=== PATIENT | female | born 1940 | race Caucasian/White ===

== ENCOUNTER → 2016-05-16 | Outpatient (CLI) | payer MEDICARE, OTHER | END | disposition home or self-care (01) | LOC: GMAJ 17:06 | PROVIDERS: ATTEND Family Medicine | DX: R31.29 Other microscopic hematuria (principal) ==

== ENCOUNTER → 2016-05-23 | Outpatient (CLI) | payer MEDICARE, OTHER ==
--- NOTE | 2016-05-23 08:48 | CT ---
EXAM DESCRIPTION: Abdoment/Pelvis w/o Contrast CLINICAL HISTORY: HEMATURIA COMPARISON: None. TECHNIQUE: CT of the abdomen and pelvis was performed without contrast. Multiple axial images and multiplanar reconstructions were generated. FINDINGS: Tree-in-bud opacities noted within the right middle lobe and base of right lower lobe. The liver, gallbladder, spleen, bilateral adrenal glands and pancreas are unremarkable. Multiple peripelvic cysts noted within bilateral kidneys. No right ureteral stone. No definitive left renal stone. Urinary bladder is grossly unremarkable. Uterus and bilateral ovaries are grossly unremarkable. Diverticulosis of the colon noted. Small bowel is unremarkable. Small hiatal hernia noted. Atherosclerotic disease of the abdominal aorta with minimal ectasia. IMPRESSION: 1. Tree-in-bud opacities noted within the right lung base which can be seen in setting of aspiration or pneumonia. Aspiration is suspected modified barium swallow is suggested. 2. Diverticulosis of the colon. 3. No evidence of renal stone on today's study. Electronically signed by: Mayur Govea MD 05/23/2016 8:48 AM [facility]
== END | disposition home or self-care (01) ==
LOC: CT 07:52
PROVIDERS: ATTEND Family Medicine
DX: R31.9 Hematuria, unspecified (principal)

== ENCOUNTER → 2016-10-26 | Outpatient (CLI) | payer MEDICARE, OTHER ==
--- NOTE | 2016-10-28 19:39 | MRI ---
EXAM DESCRIPTION: Lumbar Spine w/o Contrast CLINICAL HISTORY: SPINAL STENOSIS COMPARISON: 06/27/2012 TECHNIQUE: Multiplanar images of the lumbar spine were submitted without the administration of contrast FINDINGS: There is mild anterolisthesis of L4 on L5 which was present on the previous examination. Mild retrolisthesis of L1 on L2 which also appears to been present on the prior study. Mild heterogeneity of the marrow which appears to be related to the patient's age and fibrofatty infiltration. No geographic marrow lesion or evidence of marrow edema. Conus ends at the level of L1. No abnormal signal in the distal cord or conus. There appear to be cortical renal cysts and parapelvic cysts bilaterally which were present on the previous examination. The possibility of hydronephrosis is not excluded. T12-L1: Unremarkable. L1-L2: There is generalized bulging of the disc and osteophytosis with facet arthropathy. Changes are greatest on the right with moderate left and moderate to severe right neural foraminal stenosis and mild central canal stenosis. Appears unchanged from the previous exam. L2-L3: Mild bulging of the disc and facet arthropathy with some flattening of the anterior aspect of the thecal sac and mild bilateral neural foraminal narrowing left greater than right. This appears similar to the prior study. L3-L4: Generalized bulging of the disc greatest on the left with moderate facet arthropathy and ligament of flavum hypertrophy. There is mild narrowing of the central canal with severe bilateral neural foraminal stenosis left greater than right. This appears to have progressed as compared to the previous examination L4-L5: Moderate bulging of the disc with severe facet arthropathy and ligamentum flavum hypertrophy. There is moderate narrowing of the canal measuring 8 mm with severe bilateral neural foraminal stenosis. Appears similar to the prior examination. L5-S1: High signal posteriorly in the disc interspace suggests annular tear. There is generalized bulging of the disc and facet arthropathy. Disc bulging is greatest on the left. There is mild central canal stenosis with severe bilateral neural foraminal stenosis particularly on the left. The right-sided stenosis appears worse than on the previous examination as does the central canal stenosis. IMPRESSION: Mild central canal stenosis and severe neural foraminal stenosis at L5-S1. The right-sided stenosis appears worse than on the prior study Severe neural foraminal and moderate central canal stenosis at L4-5 which appears stable Progression of degenerative changes at L3-L4 with mild central canal and severe bilateral neural foraminal stenosis Additional spondylitic changes appear stable Renal cysts versus hydronephrosis also appearing unchanged Electronically signed by: Elza Yee 10/28/2016 7:38 PM CDT
== END | disposition home or self-care (01) ==
LOC: MRI 13:29
PROVIDERS: ATTEND Family Medicine
DX: M48.06 Spinal stenosis, lumbar region (principal)

== ENCOUNTER → 2017-01-11 | Outpatient (CLI) | payer MEDICARE, OTHER | END | disposition home or self-care (01) | LOC: GMAJ 11:10 | PROVIDERS: ATTEND Family Medicine | DX: I10 Essential (primary) hypertension (principal) ==

== ENCOUNTER 2017-06-20 14:55 | Emergency (ER) | payer MEDICARE, OTHER ==
[2017-06-20] MEDS ORDERED: IPRATROPIUM/ALBUTEROL 3 ML VIAL NEB ONE ×2 (15:39)
--- NOTE | 2017-06-20 16:17 | ED.PDOC ---
History of Present Illness - General Chief Complaint: Respiratory Problem Stated Complaint: Feels like she can't catch her breath Time Seen by Provider: 06/20/17 15:39 Source: patient Exam Limitations: no limitations - History of Present Illness Initial Comments: Patient comes in with 2-3 day history of shortness of breath with activity. She states she has to rest after minimal work and that is not normal for her. She feels like it is swelling on her neck and upper airway and "not in my lungs ". She has never had this before. She denies cough, congestion, fever, wheezing. She has had inhaler for allergies in the distant past but not currently. She denies chest pain and has no past history of cardiac disease or anemia. She has no overt weakness and denies any swelling. Timing/Duration: days - 2-3 Activities at Onset: activity Possible Cause: no prior episodes Improving Factors: rest Worsening Factors: movement Associated Symptoms: denies symptoms Respiratory Risk Factors: no cause identified Allergies/Adverse Reactions: Allergies Penicillins Allergy (Verified 06/20/17 15:15) Anaphylaxis Home Medications: Ambulatory Orders Ferrous Sulfate 325 mg PO DAILY 30 Days #30 tab 06/20/17 Review of Systems - Review of Systems Constitutional: States: no symptoms reported. Denies: chills, diaphoresis, fever EENTM: States: no symptoms reported Respiratory: States: short of breath. Denies: cough, wheezing Cardiology: States: no symptoms reported. Denies: chest pain, edema, palpitations, syncope Gastrointestinal/Abdominal: States: no symptoms reported. Denies: diarrhea, nausea, vomiting Genitourinary: States: no symptoms reported Musculoskeletal: States: no symptoms reported Skin: States: no symptoms reported Neurological: States: no symptoms reported. Denies: headache, tingling, tremors Past Medical History (General) - Patient Medical History Hx Stroke: No Hx Congestive Heart Failure: No Hx Hypertension: Yes Hx Diabetes: Yes Hx Gastroesophageal Reflux: Yes Hx MRSA: No Surgical History: other - Vaccination History Hx Influenza Vaccination: Yes - 2017 Hx Pneumococcal Vaccination: Yes - Social History Hx Tobacco Use: Yes - Pt smoked as a teenager for a couple of years Family Medical History - Family History Mother Living Status: Hx Family Hypertension: Yes Hx Family Diabetes: Yes Physical Exam - Physical Exam General Appearance: Comfortable, No apparent distress Eyes, Ears, Nose, Throat Exam: PERRL/EOMI, normal ENT inspection, TMs normal, pharynx normal, scleral icterus (L) Neck: non-tender, full range of motion, supple Respiratory: chest non-tender, lungs clear, normal breath sounds, no respiratory distress, no accessory muscle use Cardiovascular/Chest: normal peripheral pulses, regular rate, rhythm, no edema, no gallop, no JVD, no murmur Peripheral Pulses: radial,right: 2+, posterior tibialis,right: 2+, posterior tibialis,left: 2+ Gastrointestinal/Abdominal: normal bowel sounds, non tender, soft, no organomegaly, no pulsatile mass 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 Copy, Patient Portal Self Enrollment Diet: other - increase iron rich foods Referrals: Earnest Cheng MD [Primary Care Provider] - 1-2 Weeks Prescriptions: Ferrous Sulfate 325 mg PO DAILY 30 Days #30 tab Home Medications: Ambulatory Orders Ferrous Sulfate 325 mg PO DAILY 30 Days #30 tab 06/20/17 Comments: Patient has normal lung/chest exam. She is however anemic. Explained that with iron def anemia needs work up to make sure no chronic loss. Patient will get iron supplement 325 mg po qd. She is to follow up with PCP in 3-4 days. Return to ER for worsening shortness of breath, chest pain, weakness.
--- NOTE | 2017-06-20 16:20 | RAD ---
EXAM DESCRIPTION: Chest,2 Views CLINICAL HISTORY: shortness of breath COMPARISON: None TECHNIQUE: PA/lateral FINDINGS: Patchy density in the lingula is noted suggesting minimal scarring or discoid atelectasis. This is seen overlying the heart on the lateral view. Right lung is clear. Left upper lung zone is clear. Otherwise there is no acute appearing cardiac or pulmonary abnormality. Heart size is normal with normal pulmonary vascularity. No pleural effusion or pneumothorax. Lateral view shows intact sternum and T-spine. Degenerative changes are seen in the mid T-spine and upper L-spine and the bones appear osteopenic or osteoporotic. Calcified aorta is noted. IMPRESSION: Linear density probably scarring or discoid atelectasis. Otherwise clear chest. Electronically signed by: Rex Wright MD 06/20/2017 4:18 PM CDT
[2017-06-20 17:54] VITALS: BP 148/79; TEMP 97; O2SAT 97
== END 2017-06-20 17:22 | disposition home or self-care (01) ==
LOC: ER 14:55
DX: D50.9 Iron deficiency anemia, unspecified (principal); I10 Essential (primary) hypertension; E11.9 Type 2 diabetes mellitus without complications; K21.9 Gastro-esophageal reflux disease without esophagitis; Z87.891 Personal history of nicotine dependence; Z88.0 Allergy status to penicillin

== ENCOUNTER → 2017-06-22 | Outpatient (CLI) | payer MEDICARE, OTHER | END | disposition home or self-care (01) | LOC: GMAJS 13:24 | PROVIDERS: ATTEND Physician Assistant | DX: D64.9 Anemia, unspecified (principal); R31.29 Other microscopic hematuria ==

== ENCOUNTER 2017-07-01 15:51 | Emergency (ER) | payer MEDICARE, OTHER ==
[2017-07-01 16:03] VITALS: TEMP 98.8
[2017-07-01] MEDS ORDERED: ALPRAZolam 0.25 MG TAB PO ONE (16:05)
[2017-07-01] MEDS ORDERED: ASPIRIN TABLET 325 MG TAB PO ONE (16:07)
[2017-07-01] MEDS ORDERED: METOPROLOL TARTRATE 25 MG TAB PO ONE (16:07)
[2017-07-01] MEDS ORDERED: ATORVASTATIN 20 MG TAB PO ONE (16:07)
[2017-07-01] MEDS ORDERED: NITROGLYCERIN 0.4 MG 25 EA TAB SL ONE (16:07)
--- NOTE | 2017-07-01 16:40 | RAD ---
EXAM DESCRIPTION: Chest,1 View CLINICAL HISTORY: chest pain COMPARISON: 06/20/2017 FINDINGS: Cardiac silhouette is within normal limits. Small focus of consolidation is again seen in the left lung base. Atelectasis involves the right lung base with a small region of consolidation worsening at the medial right lung base.. IMPRESSION: Bilateral consolidations. Electronically signed by: Johnathan Gauthier 07/01/2017 4:39 PM CDT
--- NOTE | 2017-07-01 18:01 | ED.PDOC ---
History of Present Illness - General Chief Complaint: Chest Pain/[place] Stated Complaint: Chest burning, shortness of breath Time Seen by Provider: 07/01/17 16:05 Source: patient Exam Limitations: no limitations - History of Present Illness Initial Comments: Patient comes in with onset today of chest discomfort that feels like "tingling " with radiation to her arms. She has had several episodes of this and her doctor recently, 3 days ago, put her on Xffexor. Patient states in the past she was on Celexa for years and did well but then she became concerned that it was causing some diarrhea and she stopped the medication on May. About 1-2 weeks later she started having these episodes. Today she has no shortness of breath, nausea, diaphoresis. She has no known heart disease and has never been a smoker. The discomfort "is not pain" but a really horrible feeling with anxiety. Timing/Duration: 4-6 hours Severity/Quality: mild Location: substernal Chest Pain Radiation: arms Activities at Onset: emotional stress Prior Chest Pain/Cardiac Workup: no prior chest pain Improving Factors: nothing Worsening Factors: other - Xanax given in the ER Nitro Today/Relief: provided by ED Aspirin Treatment Today: provided by ED Associated Symptoms: denies symptoms Allergies/Adverse Reactions: Allergies Penicillins Allergy (Verified 06/20/17 15:15) Anaphylaxis Home Medications: Ambulatory Orders Ferrous Sulfate 325 mg PO DAILY 30 Days #30 tab 06/20/17 Review of Systems - Review of Systems Constitutional: States: no symptoms reported. Denies: chills, fever EENTM: States: no symptoms reported Respiratory: States: no symptoms reported. Denies: cough, orthopnea, short of breath, wheezing Cardiology: States: chest pain. Denies: edema, palpitations, syncope Gastrointestinal/Abdominal: States: no symptoms reported. Denies: abdominal pain, diarrhea, nausea, vomiting Genitourinary: States: no symptoms reported Musculoskeletal: States: no symptoms reported Skin: States: no symptoms reported Past Medical History (General) - Patient Medical History Hx Stroke: No Hx Congestive Heart Failure: No Hx Hypertension: Yes Hx Diabetes: Yes Hx Gastroesophageal Reflux: Yes Hx MRSA: No - Vaccination History Hx Influenza Vaccination: Yes - 2017 Hx Pneumococcal Vaccination: Yes - Social History Hx Tobacco Use: Yes - Pt smoked as a teenager for a couple of years Family Medical History - Family History Mother Living Status: Hx Family Hypertension: Yes Hx Family Diabetes: Yes Physical Exam - Physical Exam General Appearance: Alert, Anxious Eyes, Ears, Nose, Throat Exam: PERRL/EOMI, normal ENT inspection, TMs normal, pharynx normal Neck: non-tender, full range of motion, supple, normal inspection Respiratory: chest non-tender, lungs clear, normal breath sounds, no respiratory distress Cardiovascular/Chest: normal peripheral pulses, regular rate, rhythm, no edema, no gallop, no JVD, no murmur Peripheral Pulses: radial,right: 2+ Gastrointestinal/Abdominal: normal bowel sounds, non tender, soft, no organomegaly, no pulsatile mass Neurologic: senior editor II-XII nml as tested, alert, oriented x 3 Progress - Progress Progress: 07/01/17 18:02 07/01/17 16:15 EKG STAT Laboratory Results WBC 5.0 K/mm3 (4.8-10.8) 07/01/17 16:20 RBC 4.07 M/mm3 (4.20-5.40) L 07/01/17 16:20 Hgb 10.4 gm/dL (12.0-16.0) L 07/01/17 16:20 Hct 32.2 % (36.0-47.0) L 07/01/17 16:20 MCV 79.1 fl (81.0-99.0) L 07/01/17 16:20 MCH 25.5 pg (27.0-31.0) L 07/01/17 16:20 MCHC 32.3 g/dL (33.0-37.0) L 07/01/17 16:20 RDW 16.3 % (11.5-14.5) H 07/01/17 16:20 Plt Count 296 K/mm3 (130-400) 07/01/17 16:20 MPV 7.7 fl (7.40-10.4) 07/01/17 16:20 Absolute Neuts (auto) 3.50 K/uL (1.8-6.8) 07/01/17 16:20 Absolute Lymphs (auto) 0.90 K/uL (1.0-3.4) L 07/01/17 16:20 Absolute Monos (auto) 0.40 K/uL (0.2-0.8) 07/01/17 16:20 Absolute Eos (auto) 0.20 K/uL (0.0-0.4) 07/01/17 16:20 Absolute Basos (auto) 0.00 K/uL (0.0-0.1) 07/01/17 16:20 Neutrophils % 68.7 % (42.0-78.0) 07/01/17 16:20 Lymphocytes % 18.7 % (20.0-50.0) L 07/01/17 16:20 Monocytes % 8.1 % (2.0-9.0) 07/01/17 16:20 Eosinophils % 3.8 % (1.0-5.0) 07/01/17 16:20 Basophils % 0.7 % (0.0-2.0) 07/01/17 16:20 PT 10.0 SECONDS (9.4-12.5) 07/01/17 16:20 INR 0.860 07/01/17 16:20 PTT (SP) 27.6 SECONDS (25.1-36.5) 07/01/17 16:20 Sodium 133 mmol/L (135-145) L 07/01/17 16:20 Potassium 4.1 mmol/L (3.6-5.0) 07/01/17 16:20 Chloride 100 mmol/L (101-111) L 07/01/17 16:20 Carbon Dioxide 23 mmol/L (21-31) 07/01/17 16:20 Anion Gap 14.1 (12-18) 07/01/17 16:20 BUN 20 mg/dL (7-18) H 07/01/17 16:20 Creatinine 1.39 mg/dL (0.6-1.3) H 07/01/17 16:20 BUN/Creatinine Ratio 14.4 (10-20) 07/01/17 16:20 Random Glucose 267 mg/dL (70-105) H 07/01/17 16:20 Serum Osmolality 278.4 mOsm/L (275-295) 07/01/17 16:20 Calcium 9.7 mg/dL (8.4-10.2) 07/01/17 16:20 Magnesium 1.8 mg/dL (1.8-2.5) 07/01/17 16:20 Creatine Kinase 63 IU/L (26-140) 07/01/17 16:20 CK-MB (CK-2) 1.3 ng/mL (0.0-4.4) 07/01/17 16:20 CK-MB (CK-2) % Not Reportable 07/01/17 16:20 Troponin I 0.03 ng/mL (0.01-0.05) 07/01/17 16:20 07/01/17 18:04 Patient states after Xanax and just relaxing the pain completely resolved. Discussed CXR and lab results. Patient states being treated for iron deficiency and has colonoscopy scheduled for the first of July. Patient admits to not taking deep breaths but states she has no cough, wheezing, fever, or increased work of breathing. Trial of incentive spirometer and follow up chest xray with PCP - EKG/XRAY/CT XRAY: chest Xray Comments: bilateral atelectasis Departure - Departure Clinical Impression: Anxiety, Atelectasis of both lungs Iron deficiency anemia Qualifiers: Iron deficiency anemia type: unspecified iron deficiency Qualified Code(s): D50.9 - Iron deficiency anemia, unspecified Disposition: Discharge to Home or Self Care Condition: Good Departure Forms: ED Discharge - Pt. Copy, Patient Portal Self Enrollment Instructions: DI for Chest Pain Diet: resume usual diet Referrals: Earnest Cheng MD [Primary Care Provider] - 1-2 Weeks Home Medications: Ambulatory Orders Ferrous Sulfate 325 mg PO DAILY 30 Days #30 tab 06/20/17 Additional Instructions: follow up with PCP in 3-4 days to recheck chest xray after incentive spirometer. Use device 10 x an hour while awake. Return to ER for shortness of breath, fever, cough, or return of chest pain. Continue with medication recently started by PCP for anxiety.
[2017-07-01 18:22] VITALS: BP 147/76; O2SAT 95
== END 2017-07-01 18:22 | disposition home or self-care (01) ==
LOC: ER 15:51
DX: F41.9 Anxiety disorder, unspecified (principal); J98.11 Atelectasis; D50.9 Iron deficiency anemia, unspecified; I10 Essential (primary) hypertension; E11.9 Type 2 diabetes mellitus without complications; K21.9 Gastro-esophageal reflux disease without esophagitis; Z87.891 Personal history of nicotine dependence

== ENCOUNTER → 2017-11-21 | Outpatient (CLI) | payer MEDICARE, OTHER | LOC: LAB.O 10:21 | PROVIDERS: ATTEND Internal Medicine Gastroenterology | DX: D50.0 Iron deficiency anemia secondary to blood loss (chronic) (principal) ==

== ENCOUNTER → 2017-12-07 | Outpatient (CLI) | payer MEDICARE, OTHER | LOC: GMAJ 12:36 | PROVIDERS: ATTEND Family Medicine | DX: D50.9 Iron deficiency anemia, unspecified (principal) ==

== ENCOUNTER → 2018-06-17 | Outpatient (CLI) | payer MEDICARE, OTHER | LOC: LAB.O 12:54 | PROVIDERS: ATTEND Internal Medicine Gastroenterology | DX: D50.0 Iron deficiency anemia secondary to blood loss (chronic) (principal) ==

== ENCOUNTER 2018-08-25 08:28 | Emergency (ER) | payer MEDICARE, OTHER ==
[2018-08-25] MEDS ORDERED: ENALAPRILAT INJ 1.25 MG/ML VIAL IV ONE (08:57)
[2018-08-25] MEDS ORDERED: BENZONATATE PERLES 100 MG CAP PO ONE (08:57)
[2018-08-25] MEDS ORDERED: IPRATROPIUM/ALBUTEROL 3 ML VIAL NEB ONE (08:57)
--- NOTE | 2018-08-25 09:01 | ED.PDOC ---
History of Present Illness - General Chief Complaint: Blood Pressure Problem Stated Complaint: Elevated BP Time Seen by Provider: 08/25/18 08:57 Source: patient Exam Limitations: no limitations - History of Present Illness Initial Comments: Patient comes in with elevated blood pressure above 200 today systolic with associated weakness and fatigue. patient has been battling an upper respiratory infection and was treated with Zithromax that was started on by her PCP. Patient states she continues to have a bad cough with productive sputum but no fever or chills. No shortness of breath or chest pain. Today she been checking her blood pressure and where it normally runs in the 140s at the highest the above 200. She denies headache, vision change, or chest pain. She does have her legs just feeling weak and she just doesn't feel well. She denies any changes in sensation to her upper or lower extremity and no confusion or troubles with her words. Patient's past medical history significant for hypertension, diabetes mellitus Timing/Duration: 4-6 hours Severity: moderate Improving Factors: nothing Worsening Factors: nothing Associated Symptoms: denies symptoms Allergies/Adverse Reactions: Allergies Penicillins Allergy (Verified 08/25/18 08:53) Anaphylaxis Home Medications: Ambulatory Orders Amlodipine Besylate 10 mg PO DAILY 08/25/18 Benzonatate Perles [Tessalon Perles] 100 mg PO Q4HR PRN #20 cap 08/25/18 Buspirone HCl 7.5 mg PO DAILY 08/25/18 Linagliptin [Tradjenta] 5 mg PO DAILY 08/25/18 Losartan Potassium [Cozaar] 100 mg PO DAILY 08/25/18 Metformin HCl [Metformin Hydrochloride E] 750 mg PO BID 08/25/18 Metoprolol Succinate [Metoprolol Succinate ER] 100 mg PO BID 08/25/18 Omeprazole [Omeprazole Dr] 20 mg PO BID 08/25/18 Review of Systems - Review of Systems Constitutional: States: no symptoms reported, malaise. Denies: fever EENTM: States: no symptoms reported, nose congestion. Denies: eye pain, ear pain, throat pain, mouth pain Respiratory: States: no symptoms reported, cough. Denies: short of breath, wheezing Cardiology: States: no symptoms reported. Denies: chest pain, edema, palpitations Gastrointestinal/Abdominal: States: no symptoms reported. Denies: abdominal pain, constipation, nausea Genitourinary: States: no symptoms reported Musculoskeletal: States: no symptoms reported Skin: States: no symptoms reported Neurological: States: weakness Past Medical History (General) - Patient Medical History Hx Stroke: No Hx Congestive Heart Failure: No Hx Hypertension: Yes Hx Diabetes: Yes Hx Gastroesophageal Reflux: Yes Hx MRSA: No - Vaccination History Hx Influenza Vaccination: Yes - 2017 Hx Pneumococcal Vaccination: Yes - Social History Hx Tobacco Use: Yes - Pt smoked as a teenager for a couple of years Family Medical History - Family History Mother Living Status: Hx Family Hypertension: Yes Hx Family Diabetes: Yes Physical Exam - Physical Exam General Appearance: Alert, Comfortable, No apparent distress Eye Exam: bilateral normal Ears, Nose, Throat: hearing grossly normal, normal ENT inspection, normal pharynx Neck: non-tender, full range of motion, supple, normal inspection Respiratory: chest non-tender, no respiratory distress, no accessory muscle use, rhonchi - bilateral Cardiovascular/Chest: normal peripheral pulses, regular rate, rhythm, no edema, no gallop, no JVD, no murmur Peripheral Pulses: radial,right: 2+, radial,left: 2+ Gastrointestinal/Abdominal: normal bowel sounds, non tender, soft Back Exam: no CVA tenderness Extremity: non-tender, no pedal edema Neurologic: alert, oriented x 3 Progress - Progress Progress: 08/25/18 10:15 patient is doing better and blood pressure decreased with just time and relaxation techniques without medication discussed with patient and she will discuss with her PCP and try at home techniques discussed and follow up next week with PCP 08/25/18 10:18 lungs clear after treatment and cough - Results/Orders Results/Orders: 08/25/18 09:00 EKG STAT 08/25/18 09:09 SVN/Updraft Therapy .PRN Laboratory Results WBC 5.5 K/mm3 (4.8-10.8) 08/25/18 09:13 RBC 4.40 M/mm3 (4.20-5.40) 08/25/18 09:13 Hgb 12.8 gm/dL (12.0-16.0) 08/25/18 09:13 Hct 38.2 % (36.0-47.0) 08/25/18 09:13 MCV 86.8 fl (81.0-99.0) 08/25/18 09:13 MCH 29.2 pg (27.0-31.0) 08/25/18 09:13 MCHC 33.6 g/dL (33.0-37.0) 08/25/18 09:13 RDW 13.5 % (11.5-14.5) 08/25/18 09:13 Plt Count 282 K/mm3 (130-400) 08/25/18 09:13 MPV 7.8 fl (7.40-10.4) 08/25/18 09:13 Absolute Neuts (auto) 4.10 K/uL (1.8-6.8) 08/25/18 09:13 Absolute Lymphs (auto) 0.70 K/uL (1.0-3.4) L 08/25/18 09:13 Absolute Monos (auto) 0.40 K/uL (0.2-0.8) 08/25/18 09:13 Absolute Eos (auto) 0.20 K/uL (0.0-0.4) 08/25/18 09:13 Absolute Basos (auto) 0.00 K/uL (0.0-0.1) 08/25/18 09:13 Neutrophils % 74.9 % (42.0-78.0) 08/25/18 09:13 Lymphocytes % 12.7 % (20.0-50.0) L 08/25/18 09:13 Monocytes % 8.0 % (2.0-9.0) 08/25/18 09:13 Eosinophils % 3.8 % (1.0-5.0) 08/25/18 09:13 Basophils % 0.6 % (0.0-2.0) 08/25/18 09:13 Sodium 136 mmol/L (135-145) 08/25/18 09:13 Potassium 4.0 mmol/L (3.6-5.0) 08/25/18 09:13 Chloride 104 mmol/L (101-111) 08/25/18 09:13 Carbon Dioxide 22 mmol/L (21-31) 08/25/18 09:13 Anion Gap 14.0 (12-18) 08/25/18 09:13 BUN 20 mg/dL (7-18) H 08/25/18 09:13 Creatinine 1.19 mg/dL (0.6-1.3) 08/25/18 09:13 BUN/Creatinine Ratio 16.8 (10-20) 08/25/18 09:13 Random Glucose 197 mg/dL (70-105) H 08/25/18 09:13 Serum Osmolality 280.0 mOsm/L (275-295) 08/25/18 09:13 Calcium 9.2 mg/dL (8.4-10.2) 08/25/18 09:13 Total Bilirubin 0.4 mg/dL (0.2-1.0) 08/25/18 09:13 AST 18 IU/L (10-42) 08/25/18 09:13 ALT 11 IU/L (10-60) 08/25/18 09:13 Alkaline Phosphatase 73 IU/L (42-121) 08/25/18 09:13 Creatine Kinase 96 IU/L (26-140) 08/25/18 09:13 CK-MB (CK-2) 2.2 ng/mL (0.0-4.4) 08/25/18 09:13 CK-MB (CK-2) % Not Reportable 08/25/18 09:13 Troponin I 0.02 ng/mL (0.01-0.05) 08/25/18 09:13 Serum Total Protein 7.0 gm/dL (6.4-8.2) 08/25/18 09:13 Albumin 3.6 g/dl (3.2-5.5) 08/25/18 09:13 Globulin 3.4 gm/dL (2.3-3.5) 08/25/18 09:13 Albumin/Globulin Ratio 1.1 (1.1-1.9) 08/25/18 09:13 Patient Name: JADE THRASHER Gender: Female Date of : 1940 Referring Physician: RONNY HURTADO Organization: [facility] Accession Number: [id number] Requested Date: August 25, 2018 08:57 Report Status: Final Requested Procedure: 1 Procedure Description: Chest,1 View Modality: CR Findings Reporting MD: Harman Gracia Fellow MD: Not available Dictation Time: Candle Molder: Not available Curriculum Counselor Date: PROCEDURE: XR Chest, 1 View CLINICAL INDICATION: The patient is 78 years old and is Female; cough TECHNIQUE: Frontal view of the chest. COMPARISON: Prior study from 07/01/2017 FINDINGS: LUNGS: The lungs are clear and free of focal consolidation. Lungs are hyperinflated. Pulmonary vascularity is normal. PLEURAL SPACE: There is NO pneumothorax. There are no pleural effusions noted. HEART: The heart size is normal. MEDIASTINUM: The mediastinal contour is unremarkable. BONES/JOINTS: No acute abnormality. VASCULATURE: The aortic knob is calcified. IMPRESSION: The lungs are clear and free of focal consolidation. No change. Hyperinflation - EKG/XRAY/CT EKG: Sinus Comments: left anterior fasicular block with HR of 81 Departure - Departure Clinical Impression: Hypertension Qualifiers: Hypertension type: essential hypertension Qualified Code(s): I10 - Essential (primary) hypertension Upper respiratory infection Qualifiers: URI type: unspecified viral URI Qualified Code(s): J06.9 - Acute upper respiratory infection, unspecified Disposition: Discharge to Home or Self Care Departure Forms: ED Discharge - Pt. Copy, Patient Portal Self Enrollment Instructions: DI for High Blood Pressure Diet: regular diet Referrals: Earnest Cheng MD [Primary Care Provider] - 1-2 Weeks Prescriptions: Benzonatate Perles [Tessalon Perles] 100 mg PO Q4HR PRN #20 cap PRN Reason: Cough Home Medications: Ambulatory Orders Amlodipine Besylate 10 mg PO DAILY 08/25/18 Benzonatate Perles [Tessalon Perles] 100 mg PO Q4HR PRN #20 cap 08/25/18 Buspirone HCl 7.5 mg PO DAILY 08/25/18 Linagliptin [Tradjenta] 5 mg PO DAILY 08/25/18 Losartan Potassium [Cozaar] 100 mg PO DAILY 08/25/18 Metformin HCl [Metformin Hydrochloride E] 750 mg PO BID 08/25/18 Metoprolol Succinate [Metoprolol Succinate ER] 100 mg PO BID 08/25/18 Omeprazole [Omeprazole Dr] 20 mg PO BID 08/25/18 Additional Instructions: return to ER for altered LOC, chest pain, worsening cough. Follow up with PCP in 2-3 days to recheck BP and lungs. continue medication started by PCP for cough
--- NOTE | 2018-08-25 09:51 | RAD ---
PROCEDURE: XR Chest, 1 View CLINICAL INDICATION: The patient is 78 years old and is Female; cough TECHNIQUE: Frontal view of the chest. COMPARISON: Prior study from 07/01/2017 FINDINGS: LUNGS: The lungs are clear and free of focal consolidation. Lungs are hyperinflated. Pulmonary vascularity is normal. PLEURAL SPACE: There is NO pneumothorax. There are no pleural effusions noted. HEART: The heart size is normal. MEDIASTINUM: The mediastinal contour is unremarkable. BONES/JOINTS: No acute abnormality. VASCULATURE: The aortic knob is calcified. IMPRESSION: The lungs are clear and free of focal consolidation. No change. Hyperinflation. Electronically signed by: Harman Gracia MD 08/25/2018 9:49 AM CDT
[2018-08-25 10:40] VITALS: O2SAT 95
[2018-08-25 10:47] VITALS: BP 173/86; TEMP 97.4
== END 2018-08-25 10:35 | disposition home or self-care (01) ==
LOC: ER 08:28
DX: I10 Essential (primary) hypertension (principal); J06.9 Acute upper respiratory infection, unspecified; I44.4 Left anterior fascicular block; E11.9 Type 2 diabetes mellitus without complications; K21.9 Gastro-esophageal reflux disease without esophagitis; Z87.891 Personal history of nicotine dependence; Z79.84 Long term (current) use of oral hypoglycemic drugs; Z79.899 Other long term (current) drug therapy; Z88.0 Allergy status to penicillin
CPT/HCPCS: 36415; 71045; 80053; 82550; 82553; 84484; 85025; 93005; 94640; J7620

== ENCOUNTER → 2018-12-10 | Outpatient (CLI) | payer MEDICARE, OTHER ==
--- NOTE | 2018-12-10 14:37 | CT ---
EXAM DESCRIPTION: Head CLINICAL HISTORY: DIZZINESS AND GIDDINESS COMPARISON: None TECHNIQUE: Noncontrast transaxial CT images of the head are obtained from base to vertex. This exam was performed according to our departmental dose-optimization program, which includes automated exposure control, adjustment of the mA and/or kV according to patient size and/or use of iterative reconstruction technique. FINDINGS: The midline structures are not displaced. Sulci are age-appropriate. There are areas of decreased attenuation in the periventricular white matter and the white matter of the centrum semiovale. There is no evidence of mass, mass-effect, hydrocephalus, or acute intracranial hemorrhage. No abnormal extra axial fluid collection is seen. Bone windows show no evidence of depressed skull fracture. Moderate calcifications of the intracranial carotid and vertebral arteries. Mild mucosal thickening in the ethmoid air cells bilaterally. IMPRESSION: 1. Age-appropriate atrophy with evidence of old small vessel ischemic type changes seen. 2. No acute abnormality is seen on noncontrast CT of the head. Electronically signed by: Martín Benson MD 12/10/2018 2:35 PM CDT
== END ==
LOC: CT 14:03
PROVIDERS: ATTEND Nurse Practitioner Family
DX: R42 Dizziness and giddiness (principal); G31.9 Degenerative disease of nervous system, unspecified

== ENCOUNTER → 2019-09-05 | Outpatient (CLI) | payer MEDICARE, OTHER ==
--- NOTE | 2019-09-06 20:39 | MRI ---
EXAM DESCRIPTION: Lumbar Spine w/o Contrast : Magnetic Resonance Imaging. CLINICAL HISTORY: SPINAL STENOSIS LUMBAR REGION COMPARISON: Noncontrast MRI lumbar spine October 2016. TECHNIQUE: Multiplanar, multiple standard sequences, non contrast MRI, lumbar spine. FINDINGS: L5-S1: The disc is well visualized on axial T2 series 501, image 3. Disc desiccation and moderate to severe disc space loss. Advanced endplate reactive changes. Anterior disc bulge. Grade 1 anterolisthesis 4 mm. Moderate degenerative hypertrophy of the facet joints and posterior flavum ligaments (canal elements) significant transverse canal narrowing. AP canal diameter 12 mm. Bilateral disc spur complex resulting in bilateral foraminal stenosis and L5 nerve impingement. This has progressed since the prior study, more on the right L4-L5: Disc desiccation with disc space preserved. Schmorl's nodes superior L5. Tiny posterior broad-based bulge. Degenerative hypertrophy of the canal elements with transverse diameter canal stenosis. AP canal diameter 8 mm at the level of the superior L5 endplate.. Moderate narrowing of the left foramen. Borderline right foraminal stenosis. L3-L4: Minimal loss of the disc space. Disc desiccation. Posterior broad-based bulge. Disc and spur protruding more to the left of midline with left subarticular recess stenosis and compromise left L4 nerve. This is progressed since the prior study. Degenerative hypertrophy of the canal elements more on the left. Borderline left foraminal stenosis and moderate narrowing of the right foramen. L2-L3: disc space maintained with disc desiccation. Anterior bulging. Old Schmorl's node superior L3. Degenerative hypertrophy of the canal elements, left more than right. AP canal diameter 13 mm. Moderate foraminal narrowing. Circumscribed hyperintense T1 and T2 hemangioma in the right superior L2 vertebral body stable. L1-L2: Marked disc space loss in the midline and right of midline. Grade 1 retrolisthesis 4 mm with disc spur complex bulge posteriorly. Bilateral subarticular recess stenosis with compromise L2 nerves stable. Conus terminates at this level. AP canal [id number] mm. Moderate to severe narrowing of the left foramen and borderline foraminal stenosis on the right. Foraminal encroachment progressed since the prior study. T12-L1: Disc desiccation and disc space maintained. No bulging. Canal elements are unremarkable. Canal and foramina are patent. Dextroscoliosis L3-S1. Paravertebral soft tissues paraspinal muscle atrophy. Cyst in the left kidney near the renal pelvis. Distal cord normal signal and caliber. Otherwise normal marrow signal in the remaining vertebral bodies and the posterior elements. Vertebral bodies are not compressed at any level. IMPRESSION: 1. Multiple levels of disc desiccation, disc space loss, spondylosis, spondylolisthesis, and degenerative hypertrophy of the posterior flavum ligaments and facet joints. 2. Bilateral foraminal stenosis at L5-S1 with L5 nerve impingement has progressed since the prior study, more on the right. 3. Multifactorial, Mild to moderate central canal stenosis at L4-L5 has progressed since the prior study; borderline right foraminal stenosis is stable. 4. L3-L4 disc and spur protruding to the left of midline with the subarticular recess stenosis and compromise with L4 nerve, progressed since the prior study. 5. Moderate to severe narrowing of the left L1-L2 foramen and borderline right foraminal stenosis has progressed since the prior study. Electronically signed by: Johnathan Dexter MD 09/06/2019 8:37 PM CDT
== END ==
LOC: MRI 08:32
PROVIDERS: ATTEND Family Medicine
DX: M48.062 Spinal stenosis, lumbar region with neurogenic claudication (principal); M48.07 Spinal stenosis, lumbosacral region; M51.36 Other intervertebral disc degeneration, lumbar region; M47.896 Other spondylosis, lumbar region; M25.78 Osteophyte, vertebrae; M51.26 Other intervertebral disc displacement, lumbar region

== ENCOUNTER 2020-03-12 18:20 | Emergency (ER) | payer MEDICARE, OTHER ==
[2020-03-12 18:49] VITALS: TEMP 99.8; O2SAT 98
--- NOTE | 2020-03-12 18:52 | ED.PDOC ---
History of Present Illness - General Chief Complaint: Behavioral / Psych Stated Complaint: Anxiety, elevated blood pressure Time Seen by Provider: 03/12/20 18:21 Source: patient, RN notes reviewed, Vital Signs reviewed, family Exam Limitations: no limitations - History of Present Illness Initial Comments: 79 yo F comes from home with the c/c of elevated bp. Patient states she has really bad anxiety. Was listening to [employer] about in there will be a fire from the [place] and started to worry about bombs. Checked her bp at it was 206/100. States she has therapist which she is prescribed clonazepam as needed. ONly has 8 tablets. Took one prior to arrival, and feels much better. denies chest pain, shortness of breath, headache, change in vision. Allergies/Adverse Reactions: Allergies Penicillins Allergy (Verified 03/12/20 18:49) Anaphylaxis Home Medications: Ambulatory Orders Amlodipine Besylate 10 mg PO DAILY 08/25/18 Benzonatate Perles [Tessalon Perles] 100 mg PO Q4HR PRN #20 cap 08/25/18 Buspirone HCl 7.5 mg PO DAILY 08/25/18 Linagliptin [Tradjenta] 5 mg PO DAILY 08/25/18 Losartan Potassium [Cozaar] 100 mg PO DAILY 08/25/18 Metformin HCl [Metformin Hydrochloride E] 750 mg PO BID 08/25/18 Metoprolol Succinate [Metoprolol Succinate ER] 100 mg PO BID 08/25/18 Omeprazole [Omeprazole Dr] 20 mg PO BID 08/25/18 Review of Systems - Review of Systems Constitutional: Denies: chills, fever, malaise EENTM: Denies: blurred vision, throat pain Respiratory: Denies: cough, short of breath Cardiology: Denies: chest pain, palpitations, syncope Gastrointestinal/Abdominal: Denies: abdominal pain, nausea Genitourinary: Denies: discharge Musculoskeletal: Denies: back pain, muscle pain Skin: Denies: rash Neurological: States: anxiety. Denies: headache, numbness Endocrine: Denies: unexplained weight gain, unexplained weight loss Hematologic/Lymphatic: Denies: blood clots, easy bleeding, easy bruising Past Medical History (General) - Patient Medical History Hx Seizures: No Hx Stroke: No Hx Dementia: No Hx Asthma: No Hx of COPD: No Hx Cardiac Disorders: No Hx Congestive Heart Failure: No Hx Pacemaker: No Hx Hypertension: Yes Hx Diabetes: Yes Hx Gastroesophageal Reflux: Yes Hx Renal Disease: No Hx Cancer: No Hx of HIV: No Hx Hepatitis C: No Hx MRSA: No - Vaccination History Hx Tetanus, Diphtheria Vaccination: No Hx Influenza Vaccination: Yes - 2017 Hx Pneumococcal Vaccination: Yes - Social History Hx Tobacco Use: Yes - Pt smoked as a teenager for a couple of years Hx Alcohol Use: No Hx Substance Use: No Hx Substance Use Treatment: No Hx Depression: No - Female History Patient : No Family Medical History - Family History Mother Family History: Unknown Living Status: Hx Family Hypertension: Yes Hx Family Diabetes: Yes Physical Exam - Physical Exam General Appearance: Alert, Comfortable, No apparent distress, Well Developed, Well Groomed, Well Hydrated, Well Nourished Eye Exam: bilateral normal Ears, Nose, Throat: hearing grossly normal, normal ENT inspection Neck: non-tender, full range of motion, supple, normal inspection Respiratory: chest non-tender, lungs clear, normal breath sounds, no respiratory distress, no accessory muscle use Cardiovascular/Chest: normal peripheral pulses, regular rate, rhythm, no edema, no gallop, no murmur Peripheral Pulses: radial,right: 2+, radial,left: 2+ Gastrointestinal/Abdominal: normal bowel sounds, non tender, soft, no organomegaly, no pulsatile mass Rectal Exam: deferred Back Exam: normal inspection, no CVA tenderness, no vertebral tenderness Extremity: normal range of motion, non-tender, normal inspection, no pedal edema, no calf tenderness, normal capillary refill Neurologic: resource analyst II-XII nml as tested, no motor/sensory deficits, alert, normal mood/affect, oriented x 3 Skin Exam: normal color, warm/dry Progress - Progress Progress: blood work shows hyperglycemia, patient a known diabetic. CXR shows mild pulm congestion, ILD vs infiltrate. she has no wbc, no fever, no cough, shortness of breath with anxiety has resolved. I will test for covid, but at this time I do not feel she has pneumonia or infection. Recommend follow up with her PCP. Has appointment in 3 days. 03/12/20 20:26 The data reviewed when caring for this patient included: nurse notes, prior records, etc. The history and assessments from nurses notes were reviewed and considered, and the patient's home medication list was also reviewed and considered. My assessment and the results of testing completed here in the ED were discussed with the patient/family. All questions were answered, and they express understanding of my assessment and the plan. They have been instructed to return if their symptoms worsen, and have been asked to follow up with their primary care physician to recheck today's presenting complaint. strict return precautions given. patient was discharged home in stable condition. Mary Welch DO #[id number] 03/12/20 20:27 03/12/20 20:32 - Results/Orders Results/Orders: Laboratory Results WBC 6.9 K/mm3 (4.8-10.8) 03/12/20 19:10 RBC 4.57 M/mm3 (4.20-5.40) 03/12/20 19:10 Hgb 12.8 gm/dL (12.0-16.0) 03/12/20 19:10 Hct 39.0 % (36.0-47.0) 03/12/20 19:10 MCV 85.5 fl (81.0-99.0) 03/12/20 19:10 MCH 28.1 pg (27.0-31.0) 03/12/20 19:10 MCHC 32.8 g/dL (33.0-37.0) L 03/12/20 19:10 RDW 13.2 % (11.5-14.5) 03/12/20 19:10 Plt Count 306 K/mm3 (130-400) 03/12/20 19:10 MPV 7.6 fl (7.40-10.4) 03/12/20 19:10 Absolute Neuts (auto) 5.40 K/uL (1.8-6.8) 03/12/20 19:10 Absolute Lymphs (auto) 0.80 K/uL (1.0-3.4) L 03/12/20 19:10 Absolute Monos (auto) 0.60 K/uL (0.2-0.8) 03/12/20 19:10 Absolute Eos (auto) 0.10 K/uL (0.0-0.4) 03/12/20 19:10 Absolute Basos (auto) 0.00 K/uL (0.0-0.1) 03/12/20 19:10 Neutrophils % 78.2 % (42.0-78.0) H 03/12/20 19:10 Lymphocytes % 11.3 % (20.0-50.0) L 03/12/20 19:10 Monocytes % 8.0 % (2.0-9.0) 03/12/20 19:10 Eosinophils % 1.8 % (1.0-5.0) 03/12/20 19:10 Basophils % 0.7 % (0.0-2.0) 03/12/20 19:10 PT 9.1 SECONDS (9.0-10.9) 03/12/20 19:10 INR < 1.00 (0.9-1.15) 03/12/20 19:10 PTT (SP) 23.9 SECONDS (21.8-31.6) 03/12/20 19:10 Sodium 135 mmol/L (135-145) 03/12/20 19:10 Potassium 3.9 mmol/L (3.6-5.0) 03/12/20 19:10 Chloride 103 mmol/L (101-111) 03/12/20 19:10 Carbon Dioxide 21 mmol/L (21-31) 03/12/20 19:10 Anion Gap 14.9 (12-18) 03/12/20 19:10 BUN 20 mg/dL (7-18) H 03/12/20 19:10 Creatinine 1.11 mg/dL (0.6-1.3) 03/12/20 19:10 BUN/Creatinine Ratio 18.0 (10-20) 03/12/20 19:10 Random Glucose 216 mg/dL (70-105) H 03/12/20 19:10 Serum Osmolality 279.2 mOsm/L (275-295) 03/12/20 19:10 Calcium 9.5 mg/dL (8.4-10.2) 03/12/20 19:10 Troponin I 0.02 ng/mL (0.01-0.05) 03/12/20 19:10 B-Natriuretic Peptide 176.0 pg/ml (0-100) H 03/12/20 19:10 - EKG/XRAY/CT EKG: Sinus - hr95, nonspecific ST T wave Chg Comments: LAFP, no stemi. XRAY: chest - mild interstital infitlrated ddx IDL vs infection, no wbc, no cough, no fever, neg covid, supsect fibrosis. Departure - Departure Clinical Impression: Hyperglycemia, Anxiety Hypertension Qualifiers: Hypertension type: unspecified Qualified Code(s): I10 - Essential (primary) hypertension Diabetes Qualifiers: Diabetes mellitus type: other specified (including GISELLE) Diabetes mellitus rn long term care insulin use: unspecified rn long term care insulin use status Diabetes mellitus complication status: with other specified complication Qualified Code(s): E13.69 - Other specified diabetes mellitus with other specified complication Time of Disposition: 20:03 Disposition: Discharge to Home or Self Care Departure Forms: ED Discharge - Pt. Copy, Patient Portal Self Enrollment Instructions: DI for Psychosis, Panic Disorder, Generalized Anxiety Disorder, DASH Diet, High Blood Pressure (DC) Diet: low salt diet Activity: increase activity as tolerated Referrals: Earnest Cheng MD [Primary Care Provider] - 03/15/20 Home Medications: Ambulatory Orders Amlodipine Besylate 10 mg PO DAILY 08/25/18 Benzonatate Perles [Tessalon Perles] 100 mg PO Q4HR PRN #20 cap 08/25/18 Buspirone HCl 7.5 mg PO DAILY 08/25/18 Linagliptin [Tradjenta] 5 mg PO DAILY 08/25/18 Losartan Potassium [Cozaar] 100 mg PO DAILY 08/25/18 Metformin HCl [Metformin Hydrochloride E] 750 mg PO BID 08/25/18 Metoprolol Succinate [Metoprolol Succinate ER] 100 mg PO BID 08/25/18 Omeprazole [Omeprazole Dr] 20 mg PO BID 08/25/18
--- NOTE | 2020-03-12 19:15 | RAD ---
EXAM DESCRIPTION: Chest,1 View CLINICAL HISTORY: 79 years Female, short of breath COMPARISON: 08/25/2018 TECHNIQUE: Single AP chest radiograph. FINDINGS: Subtle nonspecific bilateral basal predominance interstitial prominence. Scattered calcified lung granulomas noted. Normal cardiomediastinal contour. Aortic arch atherosclerosis. No pneumothorax or pleural effusion. IMPRESSION: 1. Nonspecific interstitial prominence. Query mild edema. Differential includes infection or ILD. Electronically signed by: Hugo Rueda MD 03/12/2020 7:13 PM SKIP HOIST ENGINEER
[2020-03-12 20:10] VITALS: BP 172/84
== END 2020-03-12 20:10 | disposition home or self-care (01) ==
LOC: ER 18:20
DX: F41.9 Anxiety disorder, unspecified (principal); I10 Essential (primary) hypertension; E11.65 Type 2 diabetes mellitus with hyperglycemia; K21.9 Gastro-esophageal reflux disease without esophagitis; Z87.891 Personal history of nicotine dependence; Z20.828 Contact with and (suspected) exposure to other viral communicable diseases; Z88.0 Allergy status to penicillin; Z79.899 Other long term (current) drug therapy; Z79.84 Long term (current) use of oral hypoglycemic drugs

== ENCOUNTER 2020-03-29 21:59 | Emergency (ER) | payer MEDICARE, OTHER ==
[2020-03-29] MEDS ORDERED: LIDOCAINE 1% 10 ML VIAL INJ ONE (22:13)
--- NOTE | 2020-03-29 23:09 | RAD ---
EXAM: XR Mandible Limited, 1, 2 or 3 Views CLINICAL HISTORY: The patient is 79 years old and is Female; left jaw pain TECHNIQUE: Frontal and/or lateral views of the mandible. COMPARISON: No relevant prior studies available. FINDINGS: DENTAL: No acute findings. BONES/JOINTS: Unremarkable. No acute fracture. No dislocation. SOFT TISSUES: Unremarkable. IMPRESSION: Normal mandible radiographs. Electronically signed by: Carolina Espitia MD 03/29/2020 11:07 PM [facility]
--- NOTE | 2020-03-29 23:15 | ED.PDOC ---
History of Present Illness - General Chief Complaint: Dental/Mouth Stated Complaint: pain left jaw, can't close it onset 1HR ago Time Seen by Provider: 03/29/20 22:07 Source: patient Exam Limitations: no limitations - History of Present Illness Initial Comments: The patient is a 79-year-old female presented emergency room secondary to dislocation of the left jaw. The patient was just putting on her nightly face cream when she moved her mouth the wrong way and it popped out. She is unable to close upon arrival. There is obvious exterior dislocation of the mandible on the left. This is never happened before. No significant trauma. Timing/Duration: 1/2 hour Severity: mild Improving Factors: nothing Worsening Factors: eating Associated Symptoms: denies symptoms Allergies/Adverse Reactions: Allergies Penicillins Allergy (Verified 03/29/20 22:11) Anaphylaxis Home Medications: Ambulatory Orders Amlodipine Besylate 10 mg PO DAILY 08/25/18 Benzonatate Perles [Tessalon Perles] 100 mg PO Q4HR PRN #20 cap 08/25/18 Buspirone HCl 7.5 mg PO DAILY 08/25/18 Linagliptin [Tradjenta] 5 mg PO DAILY 08/25/18 Losartan Potassium [Cozaar] 100 mg PO DAILY 08/25/18 Metformin HCl [Metformin Hydrochloride E] 750 mg PO BID 08/25/18 Metoprolol Succinate [Metoprolol Succinate ER] 100 mg PO BID 08/25/18 Omeprazole [Omeprazole Dr] 20 mg PO BID 08/25/18 Review of Systems - Review of Systems Constitutional: States: no symptoms reported EENTM: States: see HPI Respiratory: States: no symptoms reported Cardiology: States: no symptoms reported Gastrointestinal/Abdominal: States: no symptoms reported Genitourinary: States: no symptoms reported Musculoskeletal: States: no symptoms reported Skin: States: no symptoms reported Neurological: States: no symptoms reported Endocrine: States: no symptoms reported All other Systems: No Change from Baseline Past Medical History (General) - Patient Medical History Hx Seizures: No Hx Stroke: No Hx Dementia: No Hx Asthma: No Hx of COPD: No Hx Cardiac Disorders: No Hx Congestive Heart Failure: No Hx Pacemaker: No Hx Hypertension: Yes Hx Thyroid Disease: No Hx Diabetes: Yes Hx Gastroesophageal Reflux: Yes Hx Renal Disease: No Hx Cancer: No Hx of HIV: No Hx Hepatitis C: No Hx MRSA: No - Vaccination History Hx Tetanus, Diphtheria Vaccination: No Hx Influenza Vaccination: Yes Hx Pneumococcal Vaccination: Yes - Social History Hx Tobacco Use: Yes - Pt smoked as a teenager for a couple of years Hx Alcohol Use: No Hx Substance Use: No Hx Substance Use Treatment: No Hx Depression: No - Female History Patient : No Family Medical History - Family History Mother Family History: Unknown Living Status: Hx Family Hypertension: Yes Hx Family Diabetes: Yes Physical Exam - Physical Exam General Appearance: Alert, Comfortable, No apparent distress Eye Exam: bilateral normal Ears, Nose, Throat: hearing grossly normal, other - See history of present illness Neck: non-tender, supple Respiratory: no respiratory distress, no accessory muscle use Cardiovascular/Chest: normal peripheral pulses, no edema Peripheral Pulses: radial,right: 2+, radial,left: 2+ Rectal Exam: deferred Extremity: no pedal edema, normal capillary refill Neurologic: project development coordinator II-XII nml as tested, alert, normal mood/affect, oriented x 3 Skin Exam: normal color Comments: Vital Signs - 8 hr 03/29/20 22:04 Temperature 98.4 F Pulse Rate [ 85 monitor] Respiratory 18 Rate Blood Pressure 203/98 [Left Arm] O2 Sat by Pulse 96 Oximetry Progress - Progress Progress: 03/29/20 23:13 The patient is a 79-year-old female presented emergency room secondary to a traumatic dislocation of the left mandible at the TMJ joint. After risk and benefits were explained the patient agreed to reduction. 5 cc lidocaine without epinephrine was injected into the left TMJ. Reduction was achieved without difficulty after that. Patient is moving her jaw normally and speaking normally at this point. She should expect to have some soreness for the next few weeks. [id number] anti-inflammatory should be adequate to reduce inflammation. She needs to avoid opening her jaw widely or forcibly for the next few weeks. X-ray confirms reduction. ER warnings are given. connie regis [id number] 03/29/20 23:15 Departure - Departure Clinical Impression: TMJ dislocation Qualifiers: Encounter type: initial encounter Qualified Code(s): S03.00XA - Dislocation of jaw, unspecified side, initial encounter Disposition: Discharge to Home or Self Care Condition: Fair Departure Forms: ED Discharge - Pt. Copy, Patient Portal Self Enrollment Instructions: DI for Mouth Pain, Dislocated Jaw (DC) Diet: regular diet Activity: increase activity as tolerated Referrals: Earnest Cheng MD [Primary Care Provider] - 1-2 Weeks Home Medications: Ambulatory Orders Amlodipine Besylate 10 mg PO DAILY 08/25/18 Benzonatate Perles [Tessalon Perles] 100 mg PO Q4HR PRN #20 cap 08/25/18 Buspirone HCl 7.5 mg PO DAILY 08/25/18 Linagliptin [Tradjenta] 5 mg PO DAILY 08/25/18 Losartan Potassium [Cozaar] 100 mg PO DAILY 08/25/18 Metformin HCl [Metformin Hydrochloride E] 750 mg PO BID 08/25/18 Metoprolol Succinate [Metoprolol Succinate ER] 100 mg PO BID 08/25/18 Omeprazole [Omeprazole Dr] 20 mg PO BID 08/25/18 Additional Instructions: The patient is a 79-year-old female presented emergency room secondary to a traumatic dislocation of the left mandible at the TMJ joint. After risk and benefits were explained the patient agreed to reduction. 5 cc lidocaine without epinephrine was injected into the left TMJ. Reduction was achieved without difficulty after that. Patient is moving her jaw normally and speaking normally at this point. She should expect to have some soreness for the next few weeks. [id number] anti-inflammatory should be adequate to reduce inflammation. She needs to avoid opening her jaw widely or forcibly for the next few weeks. X-ray confirmed reduction. ER warnings are given.
[2020-03-29 23:19] VITALS: BP 177/95; TEMP 98.2; O2SAT 99
== END 2020-03-29 23:19 | disposition home or self-care (01) ==
LOC: ER 21:59
DX: S03.02XA Dislocation of jaw, left side, initial encounter (principal); K21.9 Gastro-esophageal reflux disease without esophagitis; E11.9 Type 2 diabetes mellitus without complications; I10 Essential (primary) hypertension; Z87.891 Personal history of nicotine dependence; Z79.84 Long term (current) use of oral hypoglycemic drugs; Z79.899 Other long term (current) drug therapy; Z88.0 Allergy status to penicillin; X58.XXXA Exposure to other specified factors, initial encounter; Y92.9 Unspecified place or not applicable; Y93.89 Activity, other specified

== ENCOUNTER 2020-03-31 07:42 | Emergency (ER) | payer MEDICARE, OTHER ==
--- NOTE | 2020-03-31 07:52 | ED.PDOC ---
History of Present Illness - General Time Seen by Provider: 03/31/20 07:49 Source: patient, RN notes reviewed, Vital Signs reviewed Additional Information: Female, presents to the ER because of left-sided jaw pain, patient was seen here on Sunday because of a jaw dislocation and it seems like throughout the night patient felt like she dislocated again, patient has not seen an ENT she complains of difficulty swallowing and pain on the left jaw area, patient has a history of IVDA former smoker patient is able to speak in long complete sentences - History of Present Illness Timing/Duration: other - last night EENT Location: mouth Prearrival Treatment: no prearrival treatment Improving Factors: nothing Worsening Factors: nothing Associated Symptoms: poor solids intake Allergies/Adverse Reactions: Allergies Penicillins Allergy (Verified 03/31/20 07:56) Anaphylaxis Home Medications: Ambulatory Orders Amlodipine Besylate 10 mg PO DAILY 08/25/18 Benzonatate Perles [Tessalon Perles] 100 mg PO Q4HR PRN #20 cap 08/25/18 Buspirone HCl 7.5 mg PO DAILY 08/25/18 Linagliptin [Tradjenta] 5 mg PO DAILY 08/25/18 Losartan Potassium [Cozaar] 100 mg PO DAILY 08/25/18 Metformin HCl [Metformin Hydrochloride E] 750 mg PO BID 08/25/18 Metoprolol Succinate [Metoprolol Succinate ER] 100 mg PO BID 08/25/18 Omeprazole [Omeprazole Dr] 20 mg PO BID 08/25/18 Tramadol HCl 50 mg PO Q6HRS 5 Days #20 tab 03/31/20 Review of Systems - Review of Systems Constitutional: States: no symptoms reported EENTM: States: no symptoms reported Respiratory: States: no symptoms reported Cardiology: States: no symptoms reported Gastrointestinal/Abdominal: States: no symptoms reported Genitourinary: States: no symptoms reported Musculoskeletal: States: no symptoms reported Skin: States: no symptoms reported Neurological: States: no symptoms reported Endocrine: States: no symptoms reported Hematologic/Lymphatic: States: no symptoms reported Past Medical History (General) - Patient Medical History Hx Seizures: No Hx Stroke: No Hx Dementia: No Hx Asthma: No Hx of COPD: No Hx Cardiac Disorders: No Hx Congestive Heart Failure: No Hx Pacemaker: No Hx Hypertension: Yes Hx Thyroid Disease: No Hx Diabetes: Yes Hx Gastroesophageal Reflux: Yes Hx Renal Disease: No Hx Cancer: No Hx of HIV: No Hx Hepatitis C: No Hx MRSA: No - Vaccination History Hx Tetanus, Diphtheria Vaccination: No Hx Influenza Vaccination: Yes Hx Pneumococcal Vaccination: Yes - Social History Hx Tobacco Use: Yes - Pt smoked as a teenager for a couple of years Hx Alcohol Use: No Hx Substance Use: No Hx Substance Use Treatment: No Hx Depression: No - Female History Patient : No Family Medical History - Family History Mother Family History: Unknown Living Status: Hx Family Hypertension: Yes Hx Family Diabetes: Yes Physical Exam - Physical Exam General Appearance: Well Developed, Well Groomed, Well Hydrated, Well Nourished Eye Exam: bilateral normal Ear Exam: bilateral ear: auricle normal Nasal Exam: normal inspection Throat Exam: normal mouth inspection, other - tender left mandible, able to open and close her mouth Neck: non-tender, full range of motion, supple, normal inspection Cardiovascular/Respiratory: regular rate, rhythm, no M/R/G, normal peripheral pulses, no JVD, normal breath sounds, no respiratory distress Abdominal Exam: non-tender, no organomegaly, no hernia Neurologic: medical underwriter II-XII nml as tested, no motor/sensory deficits, alert, normal mood/affect, oriented x 3 Skin Exam: normal color Progress - Progress Progress: This is an 79-year-old female, that was seen here on Sunday because of a jaw dislocation, patient present because during the night she felt like it came out again, and she will be having some trouble swallowing, and some pain at the TMJ on the left side, I ordered an x-ray that did not show any obvious dislocation, the recommendation from radiologist was to order a MRI, family member did speak with her primary care physician and they will try to find her an ENT. Obviously I did tell him that we do not have an MRI machine here but I will recommend using ice packs keeping a liquid diet, and will prescribe her some tramadol for pain, I did tell the family and the patient that tramadol may cause some drowsiness to be careful with it and obviously to follow-up with ENT as soon as possible 03/31/20 08:30 Departure - Departure Clinical Impression: Jaw pain Disposition: Discharge to Home or Self Care Condition: Fair Diet: full liquid diet, bland diet Referrals: Earnest Cheng MD [Primary Care Provider] - 1-2 Weeks Prescriptions: Tramadol HCl 50 mg PO Q6HRS 5 Days #20 tab Home Medications: Ambulatory Orders Amlodipine Besylate 10 mg PO DAILY 08/25/18 Benzonatate Perles [Tessalon Perles] 100 mg PO Q4HR PRN #20 cap 08/25/18 Buspirone HCl 7.5 mg PO DAILY 08/25/18 Linagliptin [Tradjenta] 5 mg PO DAILY 08/25/18 Losartan Potassium [Cozaar] 100 mg PO DAILY 08/25/18 Metformin HCl [Metformin Hydrochloride E] 750 mg PO BID 08/25/18 Metoprolol Succinate [Metoprolol Succinate ER] 100 mg PO BID 08/25/18 Omeprazole [Omeprazole Dr] 20 mg PO BID 08/25/18 Tramadol HCl 50 mg PO Q6HRS 5 Days #20 tab 03/31/20 Additional Instructions: follow up with ENT
[2020-03-31 07:56] VITALS: TEMP 98.6
--- NOTE | 2020-03-31 08:16 | RAD ---
EXAM DESCRIPTION: Mandible, 4 radiographs CLINICAL HISTORY: jaw dislocation FINDINGS/ IMPRESSION: Comparison 03/29/2020 Osteopenia. No fracture of the mandible. No lytic or blastic bony lesion. Anterior positioning of the condylar head relative to the condylar fossa and temporal eminence on the radiograph labeled as left. The radiograph labeled as right demonstrates the condylar head centered within the condylar fossa. This could simply be positioning, related to degree of mouth opening. If there is concern for persistent subluxation or dislocation of the articular disc, recommend dedicated MRI Electronically signed by: Matty Thibodeaux MD 03/31/2020 8:14 AM [facility]
[2020-03-31 08:49] VITALS: BP 170/81; O2SAT 97
== END 2020-03-31 08:49 | disposition home or self-care (01) ==
LOC: ER 07:42
DX: R68.84 Jaw pain (principal); I10 Essential (primary) hypertension; E11.9 Type 2 diabetes mellitus without complications; K21.9 Gastro-esophageal reflux disease without esophagitis; Z87.891 Personal history of nicotine dependence; Z79.84 Long term (current) use of oral hypoglycemic drugs; Z79.899 Other long term (current) drug therapy; Z88.0 Allergy status to penicillin